=== PATIENT | male | born 1960 | race Caucasian/White ===

== ENCOUNTER → 2017-11-20 07:41 | Outpatient (CLI) | payer OTHER, SELFPAY ==
--- NOTE | 2017-11-22 08:01 | PM.PFT.1 ---
Pulmonary Function Test Referral & Results Date Patient Seen: 11/20/17 Requesting provider: Cristiano Hughes Results: The spirometry demonstrates an FVC of 4.33 L which is 90% of predicted. The FEV1 was measured at 3.12 L which is 86% of predicted. The FEV1/FVC ratio was 72 which is 94% of predicted. Following the administration of bronchodilator there was no appreciable change. Lung volumes show an SVC of 4.39 L which is 92% of predicted. The diffusing capacity was measured at 33.31 which is 103% of predicted. The maximum voluntary ventilation was normal. Interpretation: This study is essentially normal. There is a slight curve to the flow volume loop and perhaps slight reduction in FEV1/FEC ratio suggesting at worst extremely minimal obstructive lung disease Clinical correlation suggested
== END ==
PROVIDERS: Visit Provider Family Medicine
DX: R06.2 Wheezing (principal)
CPT/HCPCS: 94010; 94060; 94726; 94729

== ENCOUNTER → 2019-07-01 13:10 | Outpatient (CLI) | payer OTHER, SELFPAY ==
--- NOTE | 2019-07-01 | DI.MRI.S_ITS ---
PROCEDURE: MR LUMBAR SPINE WO CON INDICATIONS: RADICULOPATHY TECHNIQUE: Noncontrast sagittal T1 spin echo and T2 fast echo, sagittal STIR, axial T1 and T2 fast spin echo through the lumbar spine. In cases with scoliosis, additional coronal T2 fast spin echo may be performed. COMPARISON: [facility], MR, LUMBAR SPINE W/O CONTRAST, 08/03/2014, 13:13. FINDINGS: Image quality: Excellent. Alignment and Curvature: Straightening of the normal lordotic curvature. Bone Marrow: No evidence of acute fracture. There is diffuse loss of the normal marrow fat signal intensity throughout the lumbar spine. This is grossly unchanged since 08/03/14 Spinal Cord: Conus medullaris terminates at the T12 level. Visualized cord demonstrates normal signal and size. Paraspinous Soft Tissues: No paravertebral masses. L1-L2: Mild canal narrowing. Partial effacement of the right lateral recess which is asymmetric. This appears progressed since prior study. Mild left foraminal narrowing which is unchanged. Moderate right foraminal stenosis which appears progressed since prior study. L2-L3: No canal stenosis. Mild partial effacement of the left lateral recess which is asymmetric. Mild right foraminal narrowing. Moderate left foraminal stenosis. No interval change L3-L4: Left-sided paracentral disc protrusion, with mild left-sided canal narrowing and asymmetric partial effacement of the left lateral recess. There is partial effacement of the right lateral recess as well and this appears progressed on the left since the prior study, raising possibility of impingement of the descending left L4 nerve root. L4-L5: Large left paracentral disc protrusion, mild left-sided canal narrowing and near complete effacement of the left lateral recess. This is progressed since prior study and suggests impingement of the descending L5 nerve root. Mild right foraminal stenosis. Severe left foraminal stenosis with nerve root compression, which is new/progressed since the prior study. L5-S1: No canal stenosis. No lateral recess narrowing. Mild left foraminal stenosis. Moderate right foraminal narrowing. Overall, no interval change. IMPRESSION: Multilevel spondylosis and facet disease as detailed above. Interval progression in left-sided canal narrowing and effacement of the left lateral recess at L4-L5. Severe left L4-L5 foraminal stenosis, also progressed. Interval progression of right L1-L2 foraminal stenosis Interval progression of left L3-L4 subarticular narrowing Diffuse loss of the normal marrow fat signal intensity, unchanged since 2015, suggestive of chronic anemia Dictated by: Jorge De Leon M.D. on 07/01/2019 at 14:55 Approved by: Jorge De Leon M.D. on 07/01/2019 at 15:06
== END ==
PROVIDERS: Referring Provider Family Medicine Geriatric Medicine; Visit Provider Family Medicine Geriatric Medicine
DX: M47.26 Other spondylosis with radiculopathy, lumbar region (principal); M48.061 Spinal stenosis, lumbar region without neurogenic claudication
CPT/HCPCS: 72148

== ENCOUNTER 2019-07-01 13:56 | Emergency (ER) | payer OTHER, SELFPAY ==
[2019-07-01 14:08] VITALS: BP 155/95; PULSE 80; RESP 16; TEMP 36.6; O2SAT 97
--- NOTE | 2019-07-01 15:30 | ED.BACK ---
HPI - Back Pain/Injury <PRADEEP Becker - Last Filed: 07/01/19 16:37> General Chief Complaint: Back Pain/Injury Stated Complaint: Back injury/left leg numbness Time Seen by Provider: 07/01/19 14:31 Source: patient Mode of arrival: Ambulatory Limitations: no limitations History of Present Illness HPI Narrative: This is a 59-year-old male, nonsmoker, who presents to ED with his spouse with chief complaint of left low back pain which radiates down to posterior calf and foot. Patient reports he already had low back pain for couple of months and has been nursing it and he carried a refrigerator over the stairs 10 days ago and he felt something immediately at the time. He reports could walk for 2 days after this. The patient had visited emergency room in [place] twice and seen by his PCP as well for same left low back pain. Patient denies saddle anesthesia, incontinence for stool or urine. Patient denies recent spine manipulation, fever, chills, vomiting but occasional nausea from severe pain. Patient was seen physical therapist for back pain already. Patient just finished 4 day course of prednisone 40 mg. the patient currently takes Tylenol, Ketolac, gabapentin, lorazepam for his pain and Tramadol 4 tabs has been added to this. Patient has history of hyperlipidemia, hypertension, history of hip replacement. Related Data Previous Rx's Medication Instructions Recorded lidocaine 1 patch TOP Q24H #30 each 07/01/19 Allergies Allergy/AdvReac Type Severity Reaction Status Date / Time lisinopril Allergy Severe ANAPHYLAXIS Unverified 07/10/17 11:52 Review of Systems <PRADEEP Becker - Last Filed: 07/01/19 16:37> Review of Systems Narrative: General: Denies fever, chills, fatigue, malaise, sweats. HEENT: Denies sinus pain, ear pain, sore throat, difficulty swallowing, dizziness. Respiratory: Denies dyspnea, cough, wheezing, hemoptysis, sputum. Cardiovascular: Denies chest pain, palpitations, orthopnea, edema. Gastrointestinal: Denies nausea, vomiting, abdominal pain, diarrhea, constipation, melena. : Denies dysuria, frequency, incontinence, hematuria, urinary retention. Musculoskeletal: See HPI Skin: Denies rash, skin lesions, or other. Neurologic: Denies weakness, headache, numbness, change in speech, confusion, seizures, incoordination. Psychiatric: No concerning psychosocial issues. 12-point review of systems is negative except for those stated above. Patient History <PRADEEP Becker - Last Filed: 07/01/19 16:37> Medical History DJD (degenerative joint disease), thoracolumbar (Acute) Hyperlipidemia (Acute) Hypertension (Acute) Surgical History History of hip replacement (Acute) Social History Smoking Status: Never smoker Smoking Status: Never smoker alcohol intake frequency: 0-2 drinks per day Substance Use Type: does not use Exam <PRADEEP Becker - Last Filed: 07/01/19 16:37> Narrative Exam Narrative: General appearance: well developed, well nourished, in no acute distress. Head: normocephalic, atraumatic, no scalp lesions, non-tender. ENT: Hearing grossly intact. Nose without bleeding, purulent discharge. Mucous membrane moist, no mucosal lesion. Throat without erythema, tonsillar hypertrophy or exudate. Uvula in midline, airway patent. Neck/Thyroid: neck supple, full range of motion, no visible masses or meningeal signs. No JVD, non-tender without lymphadenopathy. Skin: no suspicious rashes, lesions over visible areas. Warm and dry and appropriate color for ethnicity. Heart: no clubbing, no cyanosis, no edema. S1 and S2 normal. RRR w/o murmurs, clicks, or bruits. Lungs: Breathing even and unlabored. No stridor. No accessory muscles used. Able to speak in full sentences. Chest: normal shape and expansion. Abdomen: non-obese, non-distended. Nontender to palpate in 4 quadrants. Neurologic: alert and oriented. Cognitive exam, T[employer]ATOR and PNS grossly intact on informal exam. Psych: good eye contact, normal affect. Initial Vital Signs Initial Vital Signs: Vital Signs Temperature 97.9 F 07/01/19 14:08 Pulse Rate 80 07/01/19 14:08 Respiratory Rate 16 07/01/19 14:08 Blood Pressure 155/95 H 07/01/19 14:08 Pulse Oximetry 97 07/01/19 14:08 Back/Spine/Pelvis Thoracic/Lumbar Spine: thoracic and lumbar spine normal to inspection, No surgical scar(s) present, straight leg raise negative bilaterally, bend over test abnormal, No kyphosis, No mass, pain with thoraco-lumbar ROM, paraspinal tenderness (Left side), thoraco-lumbar ROM limited, No thoraco-lumbar spasm, No thoracic spinal tenderness, lumbar spinal tenderness (Left-sided), No straight leg raise positive and No tilt present <Sharon Maddox MD - Last Filed: 07/01/19 17:27> Initial Vital Signs Initial Vital Signs: Vital Signs Temperature 97.9 F 07/01/19 14:08 Pulse Rate 80 07/01/19 14:08 Respiratory Rate 16 07/01/19 14:08 Blood Pressure 155/95 H 07/01/19 14:08 Pulse Oximetry 97 07/01/19 14:08 Scores <PRADEEP Becker - Last Filed: 07/01/19 16:37> GCS Gustavo coma scale eye opening: Spontaneous Nelson coma scale verbal response: Orientated Gustavo coma scale motor response: Obey commands Gustavo coma scale total score: 15 Course <PRADEEP Becker - Last Filed: 07/01/19 16:37> Orders Ordered: Discontinued Medications Lidocaine (Lidoderm) 1 each TOP NOW ONE Stop: 07/01/19 15:31 Last Admin: 07/01/19 15:34 Dose: 1 each Documented by: DOLORES Vital Signs Vital signs: Vital Signs - 8 hr 07/01/19 14:08 07/01/19 15:39 Temperature 97.9 F Pulse Rate 80 65 Respiratory Rate 16 16 Blood Pressure 155/95 H Blood Pressure [Right Arm] 142/95 H Pulse Oximetry 97 95 <Sharon Maddox MD - Last Filed: 07/01/19 17:27> Orders Ordered: Discontinued Medications Lidocaine (Lidoderm) 1 each TOP NOW ONE Stop: 07/01/19 15:31 Last Admin: 07/01/19 15:34 Dose: 1 each Documented by: DOLORES Vital Signs Vital signs: Vital Signs - 8 hr 07/01/19 14:08 07/01/19 15:39 Temperature 97.9 F Pulse Rate 80 65 Respiratory Rate 16 16 Blood Pressure 155/95 H Blood Pressure [Right Arm] 142/95 H Pulse Oximetry 97 95 MDM - Back Pain/Injury <DUSTIN BeckerP - Last Filed: 07/01/19 16:37> Differential Diagnosis Differential diagnosis: Likely lumbar radiculopathy, sciatica, strain of lumbar region and other Medical Records Attestation: I reviewed the patient's medical records. Imaging Data MRI lumbar: Radiologist's Impression: [address] [address] Magnetic Resonance Report Signed Patient: Jamie Ovalles CMR#: [id number] : 8Acct:[id number] Age/Sex: 59 / MDate of Service: 07/01/19 Loc: MRI Accession Number: [id number] Procedure: MR lumbar spine wo con Ordering Provider: Chelsy Dillard MD PROCEDURE: MR LUMBAR SPINE WO CON INDICATIONS: RADICULOPATHY TECHNIQUE: Noncontrast sagittal T1 spin echo and T2 fast echo, sagittal STIR, axial T1 and T2 fast spin echo through the lumbar spine. In cases with scoliosis, additional coronal T2 fast spin echo may be performed. COMPARISON: [facility], MR, LUMBAR SPINE W/O CONTRAST, 08/03/2014, 13:13. FINDINGS: Image quality: Excellent. Alignment and Curvature: Straightening of the normal lordotic curvature. Bone Marrow: No evidence of acute fracture. There is diffuse loss of the normal marrow fat signal intensity throughout the lumbar spine. This is grossly unchanged since 08/03/14 Spinal Cord: Conus medullaris terminates at the T12 level. Visualized cord demonstrates normal signal and size. Paraspinous Soft Tissues: No paravertebral masses. L1-L2: Mild canal narrowing. Partial effacement of the right lateral recess which is asymmetric. This appears progressed since prior study. Mild left foraminal narrowing which is unchanged. Moderate right foraminal stenosis which appears progressed since prior study. L2-L3: No canal stenosis. Mild partial effacement of the left lateral recess which is asymmetric. Mild right foraminal narrowing. Moderate left foraminal stenosis. No interval change L3-L4: Left-sided paracentral disc protrusion, with mild left-sided canal narrowing and asymmetric partial effacement of the left lateral recess. There is partial effacement of the right lateral recess as well and this appears progressed on the left since the prior study, raising possibility of impingement of the descending left L4 nerve root. L4-L5: Large left paracentral disc protrusion, mild left-sided canal narrowing and near complete effacement of the left lateral recess. This is progressed since prior study and suggests impingement of the descending L5 nerve root. Mild right foraminal stenosis. Severe left foraminal stenosis with nerve root compression, which is new/progressed since the prior study. L5-S1: No canal stenosis. No lateral recess narrowing. Mild left foraminal stenosis. Moderate right foraminal narrowing. Overall, no interval change. IMPRESSION: Multilevel spondylosis and facet disease as detailed above. Interval progression in left-sided canal narrowing and effacement of the left lateral recess at L4-L5. Severe left L4-L5 foraminal stenosis, also progressed. Interval progression of right L1-L2 foraminal stenosis Interval progression of left L3-L4 subarticular narrowing Diffuse loss of the normal marrow fat signal intensity, unchanged since 2014, suggestive of chronic anemia Dictated by: Jorge De Leon M.D. on 07/01/2019 at 14:55 Approved by: Jorge De Leon M.D. on 07/01/2019 at 15:06 MDM Narrative Medical decision making narrative: This is a 59-year-old male who presents to ED after he had MRI test done that was arranged by his primary care physician in [place] after he had injured low back 10 days ago by lifting a refrigerator over stairs. Patient reports he has been having left side low back pain radiating down to posterior legs and up to foot with numbness. Patient's strength on bilateral legs are intact with intact sensation. Patient was able to ambulate to the bathroom and back to room 12 in stable gait but reports this worsens back pain. Patient denies saddle anesthesia or incontinence. MRI test was read by radiologist after patient was evaluated which indicates multilevel spondylosis and facet disease. Severe left L4-L5 foraminal stenosis and canal narrowing and effacement of the left lateral recess. Patient also has right L1 through L2 foraminal stenosis. Patient has L3-L4 subarticular narrowing. Incidental finding of diffused loss of normal marrow fat signal intensity which is likely due to chronic anemia. Patient and spouse informed today's MRI test briefly and advised to follow up with PCP to review these findings and continue with his pain medication regimen. Patient offered lidocaine patch for additional pain management. Return precautions were discussed with patient and spouse and verbalized understanding and agreement with treatment plan. Patient informed continue with noninvasive treatment therapy at this time. Patient and spouse requests orthopedic surgeon/spine doctors information in case the need to follow-up with them per PCP. Discharge Plan Departure Patient Disposition: Home Clinical Impression: Sciatica Qualifiers: Laterality: left Qualified Code(s): M54.32 - Sciatica, left side Strain of lumbar region Qualifiers: Encounter type: initial encounter Qualified Code(s): S39.012A - Strain of muscle, fascia and tendon of lower back, initial encounter Discharge Date/Time: 07/01/19 15:59 Instructions: DI for Back Pain With Sciatica, DI for Back Strain or Sprain Activity Restrictions/Additional Instructions: You have been diagnosed with [left low back pain and sciatica. MRI test shows left-sided lumbar spine canal narrowing, paracentral disc protrusion in L3-L5 with possible impingement of the descending left L4-L5 nerve root with multilevel spondylosis and facet disease]. What to do: *Take your medications as directed. Please continue with her current medications. As needed can add lidocaine patch on left lower back for 12 hours and off for 12 hours. If this medication is not covered by her medical insurance, you can continuous pickling line pickler [id number] 4% lidocaine patch for similar. *Follow up with your primary care provider in 2-3 days, call for an appointment. Let them know you were seen in the ED and that we asked you to be seen in follow up. As needed, I have included [facility] contact number for the future. *Return to ED if you have any new, worsening, or concerning symptoms, such as [chest pain, breathing difficulty, unable to tolerate fluids, incontinence for stool/bladder, numbness to her groin, weakness/increasing numbness or tingling or any acute concerns]. Prescriptions: New lidocaine 5 % adhesive patch,medicated 1 patch TOP Q24H Qty: 30 RF: 0 Referrals: [facility] [Provider Group] Chelsy Dillard MD [Primary Care Provider] -
[2019-07-01] MEDS: LIDOCAINE PATCH 1 EACH ADH..PATCH TOP (15:34)
[2019-07-01 15:39] VITALS: BP 142/95; PULSE 65; RESP 16; O2SAT 95
== END 2019-07-01 15:59 | disposition home or self-care (01) ==
PROVIDERS: Emergency Provider Nurse Practitioner Family; PCP Family Medicine Geriatric Medicine
DX: M54.32 Sciatica, left side (principal); S39.012A Strain of muscle, fascia and tendon of lower back, initial encounter; X50.0XXA Overexertion from strenuous movement or load, initial encounter; M47.26 Other spondylosis with radiculopathy, lumbar region; M48.061 Spinal stenosis, lumbar region without neurogenic claudication
CPT/HCPCS: 72148; 99282

== ENCOUNTER → 2023-03-15 08:29 | Outpatient (CLI) | payer OTHER, SELFPAY ==
--- NOTE | 2023-03-15 08:32 | DI.CT.S_ITS ---
PROCEDURE: CT ABDOMEN PELVIS W CON INDICATIONS: right groin pain TECHNIQUE: After the administration of oral and IV contrast, axial sections were acquired from the lung bases to the pubic symphysis. Coronal and sagittal reformats were performed. For radiation dose reduction, the following was used: automated exposure control, adjustment of mA and/or kV according to patient size. COMPARISON: None. FINDINGS: Image quality: Excellent. Lung bases: Unremarkable. Heart: No significant findings. ABDOMEN: Liver: No solid mass. Mild geographic fatty infiltration of the liver. Gallbladder: No radiopaque gallstones or wall thickening. Biliary ducts: No biliary dilation. Pancreas: No ductal dilation. Spleen: Size is within normal limits. Adrenal Glands: No adrenal nodules. Kidneys and Ureters: No hydronephrosis. No solid mass. No complex renal cystic lesion which requires follow up. Stomach and Bowel: Normal colonic caliber, without significant wall thickening. Peritoneum: No abnormal intraperitoneal fluid. No free air. Ventral Wall: No hernia. Abdominal Nodes: No retroperitoneal or mesenteric adenopathy by size criteria. Vessels: Aorta and inferior vena cava are normal in size. PELVIS: Pelvic Organs: Unremarkable. Bladder: Unremarkable. Pelvic Nodes: No enlarged lymph nodes. Miscellaneous: Very small fat containing right inguinal hernia. No left inguinal hernia is seen. Bones: Postsurgical changes are seen from right total hip arthroplasty with hardware components in expected positions. A cerclage wires present. No acute osseous fracture is seen. No large periarticular effusion or mass. Degenerative changes are seen at the pubic symphysis and throughout the lumbar spine. Mild degenerative changes in the left hip and the bilateral sacroiliac joints. Fatty infiltration of included right proximal hamstring musculature. IMPRESSION: 1. Tiny fat containing right inguinal hernia. 2. Postsurgical changes from right hip arthroplasty. No hardware complication or acute osseous abnormality is seen. 3. Moderate degenerative changes at the pubic symphysis and included spine. Mild degenerative changes at the left hip and bilateral sacroiliac joints. Approved by: Diogenes Cook M.D. on 03/15/2023 at 14:03
[2023-03-15 09:10] LABS: Estimated Glomerular Filt Rate > 60 mL/min (>60)
== END ==
PROVIDERS: PCP Family Medicine; Referring Provider Surgery; Visit Provider Surgery
DX: M47.816 Spondylosis without myelopathy or radiculopathy, lumbar region (principal); R10.31 Right lower quadrant pain
CPT/HCPCS: 36415; 74177; 82565; Q9967

== ENCOUNTER 2023-07-09 07:36 | Day surgery (SDC) | payer OTHER, SELFPAY ==
[2023-06-27 08:28] VITALS: BMI 34.5
[2023-07-09] MEDS: LACTATED RINGERS 1,000 ML 42 ML IV ×2 (07:54→10:03)
[2023-07-09] MEDS: ACETAMINOPHEN 325 MG TABLET 975 MG PO (08:05)
[2023-07-09 08:17] VITALS: BP 141/89; PULSE 88; RESP 18; TEMP 36.6; O2SAT 96
--- NOTE | 2023-07-09 08:31 | PM.HP.1 ---
History of Present Illness History of Present Illness Date Patient Seen: 07/09/23 Time Patient Seen: 08:31 [place] [facility] [place]: Jamie is a 63-year-old man who I saw in January for right groin pain which was primarily positional. He never felt a bulge. I did not appreciate a hernia on exam at that time. He had been evaluated by multiple orthopedic doctors who found no obvious cause from his hip. He did have a CT scan that showed a small right inguinal hernia. His pain has been about the same as it was in January. [facility] Medical History (Updated 07/09/23 @ 08:32 by Randall Mcdermott MD) Polyp of colon DJD (degenerative joint disease), thoracolumbar Hyperlipidemia Hypertension Surgical History (Updated 06/27/23 @ 08:33 by Kianna Ching RN) History of hip replacement Social History household members: spouse Smoking Status: Never smoker alcohol intake: current Meds Home Medications and Allergies Home Medications Medication Instructions Recorded Confirmed Type albuterol sulfate 90 mcg/actuation 2 puff inhalation Q6H PRN 02/27/23 07/09/23 History aerosol inhaler Bronchodilation aspirin 81 mg tablet,delayed 81 mg PO DAILY 02/27/23 07/09/23 History release carvedilol 6.25 mg tablet 6.25 mg PO BID 02/27/23 07/09/23 History losartan 100 mg tablet 100 mg PO DAILY 02/27/23 07/09/23 History milk thistle 175 mg tablet 175 mg PO DAILY 02/27/23 07/09/23 History simvastatin 40 mg tablet 40 mg PO BEDTIME 02/27/23 07/09/23 History Allergies Allergy/AdvReac Type Severity Reaction Status Date / Time lisinopril Allergy Severe ANAPHYLAXIS Verified 07/09/23 08:02 Exam Vital Signs (past 8 hours): - 07/09/23 08:17 Temperature 97.9 F Pulse Rate 88 Respiratory Rate 18 Blood Pressure 141/89 H Pulse Oximetry 96 Oxygen Delivery Method Room Air Oxygen Delivery Method Room Air Const General: No acute distress Resp Effort & Inspection: normal respiratory effort Assessment & Plan Assessment and plan (1) Right inguinal hernia: Status: Acute Plan We reviewed the risks and benefits of laparoscopic right inguinal hernia repair with mesh and he would like to proceed.
[2023-07-09] MEDS: CEFAZOLIN 2 GM/100 ML PREMIX 100 ML IV (09:00)
--- NOTE | 2023-07-09 09:25 | SUR.OPER ---
Supine on padded OR bed, head on pillow, arms padded and tucked at sides, legs uncrossed, safety belt at thigh, tape over blanket over lower legs .
[2023-07-09] MEDS: BUPIVACAINE 0.5% (PF) 30 ML, EPINEPHrine 0.15 MG INJ (09:32)
--- NOTE | 2023-07-09 10:13 | P.OP_ITS ---
Operative Date/Time/Diagnoses Date of procedure: 07/09/23 Time of procedure: 10:13 Pre-op diagnosis: Right inguinal hernia Post-op diagnosis: same Procedure & Clinicians Procedure: Laparoscopic right hernia repair mesh Same procedure as scheduled: Yes Surgeon: Randall Mcdermott Support Representative: Catalino Carmona Operative Notes Procedure in detail: The patient was given preoperative antibiotics. The patient was brought to the operating room, placed on the table in the supine position with the arms tucked and general anesthesia was induced. The abdomen was prepped and draped in the usual fashion. A time-out was performed. A 1 cm supraumbilical incision was created and dissection was carried down to the anterior sheath. The fascia was scored transversely with cautery. The inferior leaf of the fascia was grasped with a Elliot clamp to elevate abdominal wall and a Peon clamp was used to rodriguez the peritoneum. The Nehal port was placed and the abdomen was insufflated to 15 mmHg. The camera was inserted, there was no evidence of any injury from the entry. There was no obvious indirect hernia defect. 5 mm ports were placed under direct vision in the mid left and mid right abdomen. The patient was positioned in steep Trendelenburg. We created right peritoneal flap. The peritoneum was dissected off the right cord structures. There was fat containing right femoral hernia defect. The fat was dissected away from the defect and Shoaib's ligament. Dissection was extended across the midline. A large right Bard mesh was brought in and placed over the defect with the medial edge against Shoaib's ligament. We then closed the peritoneal flap with a ru nning 3-0 barbed suture. We took one last look around the abdomen and saw no other abnormalities. The suture was removed and accounted for. The 5 mm ports were removed under direct vision. The abdomen was desufflated. The Nehal port was removed. Additional local was injected into the fascia and the fascial incision was closed with 2 interrupted 0 Vicryl sutures. The skin incisions were closed with 4 Monocryl, Steri-Strips and Band-Aids. Catalino DONAHUE provided assistance with exposure, retraction and closure of incisions. Post-operative Condition: stable Disposition: PACU
[2023-07-09 10:20] VITALS: BP 138/78; PULSE 65; RESP 18; TEMP 37.1; O2SAT 94
[2023-07-09 10:24] VITALS: BP 117/80; PULSE 63; RESP 18; O2SAT 92
[2023-07-09 10:29] VITALS: BP 109/71; PULSE 64; RESP 18; O2SAT 94
[2023-07-09] MEDS: KETOROLAC 30 MG/ML VIAL 15 MG IV (10:33)
[2023-07-09 10:34] VITALS: BP 109/72; PULSE 61; RESP 13; TEMP 36.7; O2SAT 95
[2023-07-09 10:40] VITALS: BP 112/75; PULSE 56; RESP 14; O2SAT 96
== END 2023-07-09 11:00 | disposition home or self-care (01) ==
PROVIDERS: PCP Family Medicine; Referring Provider Surgery; Visit Provider Surgery
PROC: 0YQ54ZZ Repair Right Inguinal Region, Percutaneous Endoscopic Approach (ICD-10-PCS; CPT 49650; principal; 2023-07-09 09:00)
DX: K40.90 Unilateral inguinal hernia, without obstruction or gangrene, not specified as recurrent (principal)
CPT/HCPCS: 49650; J0171; J0690; J1885; J2250; J2405; J2704; J3010

== ENCOUNTER → 2024-01-16 08:23 | Outpatient (CLI) | payer OTHER, SELFPAY ==
--- NOTE | 2024-01-16 08:25 | DI.CT.S_ITS ---
PROCEDURE: CT ABDOMEN PELVIS W CON INDICATIONS: Right groin pain TECHNIQUE: After the administration of intravenous contrast, axial sections acquired from the lung bases to the pubic symphysis. Coronal and sagittal reformats were performed. For radiation dose reduction, the following was used: automated exposure control, adjustment of mA and/or kV according to patient size. COMPARISON: [facility], CT, CT ABDOMEN PELVIS W CON, 03/15/2023, 10:05. FINDINGS: Image quality: Diagnostic. Lower Chest: No significant findings. ABDOMEN: Liver: No solid mass. Severe hepatic steatosis is seen. Gallbladder: No radiopaque gallstones or wall thickening. Biliary ducts: No biliary dilation. Pancreas: No ductal dilation. Spleen: Size is within normal limits. Adrenal Glands: No adrenal nodules. Kidneys and Ureters: No hydronephrosis. No solid mass. No complex renal cystic lesion which requires follow up. Stomach and Bowel: There is no bowel obstruction. No abnormal bowel wall thickening or mesenteric fat stranding. Appendix is visualized in right lower quadrant and is within normal limits. No abscess collection. Peritoneum: No abnormal intraperitoneal fluid. No free air. Ventral Wall: No significant ventral hernia. Abdominal Nodes: No retroperitoneal or mesenteric adenopathy by size criteria. Vessels: Aorta and inferior vena cava are normal in size. PELVIS: Pelvic Organs: Mildly enlarged prostate gland with mild mass effect on floor of urinary bladder is seen. Bladder: No bladder wall thickening, accounting for underdistention. Pelvic Nodes: No enlarged lymph nodes. Miscellaneous: Tiny right inguinal hernia is again seen containing fat only. Bones: No aggressive osseous abnormality. There is prior right total hip arthroplasty with postsurgical changes in beam hardening artifacts. No gross hardware loosening or failure. No evidence of acute periprosthetic fracture. No acute vertebral body compression fracture. IMPRESSION: 1. Tiny right inguinal hernia containing fat only. This is unchanged from prior study. 2. Prior right total hip arthroplasty also unchanged from prior study. No gross hardware loosening or failure. 3. No acute inflammatory process is seen in abdomen or pelvis. No free fluid or free air. Normal appendix. 4. Severe hepatic steatosis, no discrete hepatic lesion. Dictated by: Néstor Gallardo M.D. on 01/16/2024 at 14:49 Approved by: Néstor Gallardo M.D. on 01/16/2024 at 14:52
[2024-01-16 08:56] LABS: Estimated Glomerular Filt Rate > 60 mL/min (>60)
== END ==
PROVIDERS: Radiology Diagnostic Radiology; PCP Family Medicine; Referring Provider Surgery; Visit Provider Surgery
DX: K76.0 Fatty (change of) liver, not elsewhere classified (principal); R10.31 Right lower quadrant pain; N40.0 Benign prostatic hyperplasia without lower urinary tract symptoms; Z96.641 Presence of right artificial hip joint
CPT/HCPCS: 36415; 74177; 82565; Q9967